=== PATIENT | male | born 1975 | race Caucasian/White ===

== ENCOUNTER 2016-11-04 09:45 | Outpatient (CLI) | payer BC, OTHER | END 2016-11-04 23:59 | disposition home or self-care (01) | LOC: WOU 09:45 | PROVIDERS: ATTEND Podiatrist Foot & Ankle Surgery | DX: M72.2 Plantar fascial fibromatosis (principal); L84 Corns and callosities; M21.6X2 Other acquired deformities of left foot; M21.172 Varus deformity, not elsewhere classified, left ankle | CPT/HCPCS: G0463 ==

== ENCOUNTER 2016-11-18 13:01 | Outpatient (CLI) | payer BC, OTHER ==
[2016-11-18] MEDS ORDERED: ETHYL CHLORIDE SPRAY 1 EA BOTTLE TP ONE (13:02)
[2016-11-18] MEDS ORDERED: DEXAMETHASONE SOD PHOSPHATE 4 MG/ML VIAL MC ONE (13:02)
== END 2016-11-18 23:59 | disposition home or self-care (01) ==
LOC: WOU 13:01
PROVIDERS: ATTEND Podiatrist Foot & Ankle Surgery
DX: M72.2 Plantar fascial fibromatosis (principal); R60.0 Localized edema
CPT/HCPCS: 20550; A6402; J1100; J3490